=== PATIENT | female | born 1955 | race Caucasian/White ===

== ENCOUNTER 2016-08-18 13:06 | Emergency (ER) | payer MEDICARE ==
[2016-08-18 14:28] LABS: HEMOGLOBIN 15.3 gm/dl (12.3-15.3); RED BLOOD COUNT 4.96 M/UL (4.00-5.10)
[2016-08-18 14:56] LABS: BUN/CREATININE RATIO 19 (0-10)
== END 2016-08-18 18:57 | disposition home or self-care (01) ==
LOC: ER1 13:06
PROVIDERS: Emergency Medicine
DX: R00.1 Bradycardia, unspecified (principal); N39.0 Urinary tract infection, site not specified; I10 Essential (primary) hypertension; F17.210 Nicotine dependence, cigarettes, uncomplicated; Z95.1 Presence of aortocoronary bypass graft; Z88.0 Allergy status to penicillin; Z90.710 Acquired absence of both cervix and uterus; Z88.5 Allergy status to narcotic agent
CPT/HCPCS: 71010; 80053; 81001; 82550; 82553; 83874; 83880; 84484; 85025; 87077; 87086; 87186; 93005; 96374; 99284; J0696; J7050; Q9963

== ENCOUNTER → 2020-06-12 | Outpatient (CLI) | payer MEDICARE ==
[~2020-06-12] MED LIST: ALL DAY ALLERGY10 M2 PO; FLAGYL500 MG PO; FLEXERIL 10 MG10 MG PO; LEVAQUIN500 MG PO; NEURONTIN 400400 MG PO; NORCO 7.5-3251 EACH PO; SYNTHROID25 MCG PO; VITAMIN D250000 UNIT PO; ZESTRIL40 MG PO
== END ==
LOC: EXRD 10:36
DX: M25.511 Pain in right shoulder (principal); M77.8 Other enthesopathies, not elsewhere classified; M19.011 Primary osteoarthritis, right shoulder; M85.811 Other specified disorders of bone density and structure, right shoulder
CPT/HCPCS: 73030

== ENCOUNTER → 2021-02-13 | Outpatient (CLI) | payer MEDICARE | LOC: EXRD 09:59 | DX: M05.9 Rheumatoid arthritis with rheumatoid factor, unspecified (principal); M19.072 Primary osteoarthritis, left ankle and foot; M19.071 Primary osteoarthritis, right ankle and foot | CPT/HCPCS: 73630 ==

== ENCOUNTER → 2021-08-29 | Outpatient (CLI) | payer MEDICARE | LOC: KOH-I 08-20 14:30 | DX: J32.9 Chronic sinusitis, unspecified (principal); R51.9 Headache, unspecified | CPT/HCPCS: 70486 ==